=== PATIENT | female | born 1995 | race American Indian/Alaskan Native ===

== ENCOUNTER 2016-10-16 18:04 | Outpatient (CLI) | payer MEDICAID ==
--- NOTE | 2016-10-17 07:51 | Ultrasound Report ---
ULTRASOUND BIOPHYSICAL PROFILE: History: Decreased movement for 2 days Technique: Transabdominal ultrasound with Doppler interrogation. 2 - breathing movements 2 - movements 2 - posture and tone 2 - Qualitative amniotic fluid volume 8 - TOTAL SCORE OF POSSIBLE 8 Heart Rate (bpm) 145
--- NOTE | 2016-10-17 07:52 | Ultrasound Report ---
ULTRASOUND OB LIMITED History: Decreased movement for 2 days Technique: Transabdominal ultrasound with Doppler interrogation. Gestation: Single Position: Cephalic Amniotic Fluid: Normal JOE = 10.4 cm Heart Rate: 140 BPM
== END 2016-10-16 20:19 | disposition home or self-care (01) ==
LOC: TRG 18:04
PROVIDERS: ATTEND Obstetrics & Gynecology
DX: O47.9 False labor, unspecified (principal); Z3A.00 Weeks of gestation of pregnancy not specified
CPT/HCPCS: 59025; 76815; 76819

== ENCOUNTER 2016-10-17 08:28 | Inpatient (IN) | payer MEDICAID ==
--- NOTE | 2016-10-17 09:06 | History and Physical Report ---
History of Present Illness Date of examination: 10/17/16 Date of admission: 10/17/16 08:28 Chief complaint: IOL History of present illness: 21 yo @ 40.3 weeks gestation. care wit [facility] [employer] [facility] since 11.3 weeks complicated by closely space pregnancies, complaints of decreased movement x 2 days. BPP done at [facility] yesterday. 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 denies: smoking, alcohol abuse, prescription drug abuse , IV drug use - Obstetrical History Expected Date of Delivery: 10/14/16 Actual Gestation: 40 Week(s) 3 Day(s) : 3 Para: 2 Hx # Term Pregnancies: 2 Number of Pregnancies: 0 Spontaneous Abortions: 0 Induced : 0 Number of Living Children: 2 Medications and Allergies Allergies Allergy/AdvReac Type Severity Reaction Status Date / Time No Known Allergies Allergy Verified 04/13/15 20:20 Home Medications Medication Instructions Recorded Confirmed Last Taken Type Clotrimazole [Clotrimazole 3 VAG] 1 applicator [facility] #3 cream.appl 08/30/13 Unknown Rx Vit #76/Iron,Carb/FA 1 tab PO DAILY 08/30/13 10/17/16 10/14/16 History [Prenatabs Rx Tablet] Review of Systems All systems: negative - Physical Exam Cardiovascular: Regular rate Lungs: Positive: Normal air movement Vagina: Positive: normal moisture Uterus: Positive: enlarged Extremities: Positive: normal Deep Tendon Reflex Grade: Normal +2 - Obstetrical FHR: category 1 FHR comments: FHR 135 Uterine Contraction Monitor Mode: External Cervical Dilatation: 3 (in office) Cervical Effacement Percentage: 60 station: -3 Uterine Contraction Pattern: Irregular Uterine Tone Measurement Phase: Resting Uterine Contraction Intensity: Mild Results All other labs normal. Assessment and Plan A: IUP @ 40.3 for IOL Category 1 FHR Uncomfortable with contractions GBS Negative P: Admit to L&D for IOL Pitocin augmentation Continuous monitoring IV pain meds/epidural as desired
[2016-10-17] MEDS ORDERED: ZOFRAN IV PRN (10:00)
[2016-10-17] MEDS ORDERED: XYLOCAINE 2% INFILTRATI ONE (10:00)
[2016-10-17] MEDS ORDERED: MINERAL OIL PO PRN (10:00)
[2016-10-17] MEDS ORDERED: LACTATED RINGERS 1,000 ML IV SCH (10:00)
[2016-10-17] MEDS ORDERED: SUBLIMAZE IV PRN (10:00)
[2016-10-17] MEDS ORDERED: PITOCin/NS 30 UNIT/500ML 30 UNITS/500 ML BAG IV SCH (10:00)
[2016-10-17] MEDS ORDERED: STADOL IV PRN (10:00)
[2016-10-17] MEDS ORDERED: PITOCin/NS 20 UNIT/1000ML DRIP 20 UNITS/1,000 ML BAG IV SCH (10:00)
[2016-10-17] MEDS ORDERED: ePHEDrine SULFATE IV PRN (10:00)
[2016-10-17] MEDS ORDERED: BRETHINE IVP PRN (10:00)
[2016-10-17] MEDS ORDERED: BRETHINE SUB-Q PRN (10:00)
[2016-10-17 10:02] LABS: Hematocrit 38.3 % (30.3-42.9); Hemoglobin 12.3 gm/dl (10.1-14.3); Mean Corpuscular HGB Conc 32 % (30-34); Mean Corpuscular Hemoglobin 28 pg (28-32); Mean Corpuscular Volume 88 fl (79-97); Platelet Count 200 K/mm3 (140-440); Red Blood Count 4.38 M/mm3 (3.65-5.03); Red Cell Distribution Width 13.5 % (13.2-15.2); White Blood Count 6.9 K/mm3 (4.5-11.0)
--- NOTE | 2016-10-17 12:07 | Anesthesia Consultation ---
Anesthesia Consult and Med Hx Date of service: 10/17/16 - Airway Anesthetic Teeth Evaluation: Good ROM Head & Neck: Adequate Mental/Hyoid Distance: Adequate Mallampati Class: Class II Intubation Access Assessment: Probably Good - Pre-Operative Health Status ASA Pre-Surgery Classification: ASA2 Proposed Anesthetic Plan: Epidural, Spinal - Pulmonary Hx Asthma: No COPD: No Hx Pneumonia: No - Cardiovascular System Hx Hypertension: No - Central Nervous System Hx Seizures: No Hx Psychiatric Problems: No - Endocrine Hx Renal Disease: No Hx End Stage Renal Disease: No Hx Hypothyroidism: No Hx Hyperthyroidism: No - Hematic Hx Anemia: No Hx Sickle Cell Disease: No - Other Systems Hx Alcohol Use: No
[2016-10-17] MEDS ORDERED: NARCAN 2 MG/2 ML IV PRN (12:08)
[2016-10-17] MEDS: fentaNYL-BUPIV 2 MCG/ML-0.125% 200 MCG/100 ML BAG EPIDURAL SCH (13:21)
--- NOTE | 2016-10-17 13:22 | Progress Note ---
Assessment and Plan A: IUP @ 40.3 for IOL Category 1 FHR Comfortable with epidural AROM 1310 copious amount of clear fluid SVE 6-7/70/-1 Pitocin augmentation GBS Negative P: Continue routine labor management Continue Pitocin augmentation Continuous monitoring Subjective - Subjective Date of service: 10/17/16 Principal diagnosis: Active labor Interval history: 21 yo @ 40.3 weeks gestation. care wit [facility]OR[employer] since 11.3 weeks complicated by closely space pregnancies, complaints of decreased movement x 2 days. BPP done at [facility] yesterday. Objective - Vital Signs Vital Signs: Vital Signs - 12hr 10/17/16 10/17/16 10/17/16 09:13 09:18 09:23 Temperature Pulse Rate 81 82 103 H Pulse Rate [ From Monitor] Respiratory Rate Blood Pressure 118/58 Blood Pressure [Left Arm] O2 Sat by Pulse 98 99 99 Oximetry 10/17/16 10/17/16 10/17/16 09:24 09:28 09:33 Temperature 98.5 F Pulse Rate 83 86 Pulse Rate [ 79 From Monitor] Respiratory 18 Rate Blood Pressure Blood Pressure 118/58 [Left Arm] O2 Sat by Pulse 100 99 97 Oximetry 10/17/16 10/17/16 10/17/16 09:38 09:43 09:48 Temperature Pulse Rate 84 76 81 Pulse Rate [ From Monitor] Respiratory Rate Blood Pressure Blood Pressure [Left Arm] O2 Sat by Pulse 97 98 99 Oximetry 10/17/16 10/17/16 10/17/16 09:53 09:58 10:03 Temperature Pulse Rate 91 H 85 93 H Pulse Rate [ From Monitor] Respiratory Rate Blood Pressure Blood Pressure [Left Arm] O2 Sat by Pulse 99 99 97 Oximetry 10/17/16 10/17/16 10/17/16 10:08 10:13 10:18 Temperature Pulse Rate 89 79 80 Pulse Rate [ From Monitor] Respiratory Rate Blood Pressure Blood Pressure [Left Arm] O2 Sat by Pulse 99 99 98 Oximetry 10/17/16 10/17/16 10/17/16 10:23 10:28 10:33 Temperature Pulse Rate 88 72 92 H Pulse Rate [ From Monitor] Respiratory Rate Blood Pressure Blood Pressure [Left Arm] O2 Sat by Pulse 97 98 98 Oximetry 10/17/16 10/17/16 10/17/16 10:38 10:43 10:54 Temperature Pulse Rate 80 74 69 Pulse Rate [ From Monitor] Respiratory Rate Blood Pressure Blood Pressure [Left Arm] O2 Sat by Pulse 99 98 98 Oximetry 10/17/16 10/17/16 10/17/16 10:55 10:59 11:04 Temperature Pulse Rate 68 73 64 Pulse Rate [ From Monitor] Respiratory Rate Blood Pressure 106/64 Blood Pressure [Left Arm] O2 Sat by Pulse 100 99 Oximetry 10/17/16 10/17/16 10/17/16 11:09 11:14 11:19 Temperature Pulse Rate 63 71 67 Pulse Rate [ From Monitor] Respiratory Rate Blood Pressure Blood Pressure [Left Arm] O2 Sat by Pulse 99 99 99 Oximetry 10/17/16 10/17/16 10/17/16 11:24 11:29 11:34 Temperature Pulse Rate 65 69 70 Pulse Rate [ From Monitor] Respiratory Rate Blood Pressure Blood Pressure [Left Arm] O2 Sat by Pulse 99 100 99 Oximetry 10/17/16 10/17/16 10/17/16 11:39 11:44 11:49 Temperature Pulse Rate 69 80 71 Pulse Rate [ From Monitor] Respiratory Rate Blood Pressure Blood Pressure [Left Arm] O2 Sat by Pulse 98 97 98 Oximetry 10/17/16 10/17/16 10/17/16 11:54 11:59 12:04 Temperature Pulse Rate 80 63 79 Pulse Rate [ From Monitor] Respiratory Rate Blood Pressure Blood Pressure [Left Arm] O2 Sat by Pulse 96 97 98 Oximetry 10/17/16 10/17/16 10/17/16 12:09 12:13 12:14 Temperature Pulse Rate 78 76 84 Pulse Rate [ From Monitor] Respiratory Rate Blood Pressure 107/60 105/53 Blood Pressure [Left Arm] O2 Sat by Pulse 99 98 Oximetry 10/17/16 10/17/16 10/17/16 12:16 12:18 12:19 Temperature Pulse Rate 82 68 68 Pulse Rate [ From Monitor] Respiratory Rate Blood Pressure 88/52 108/51 Blood Pressure [Left Arm] O2 Sat by Pulse 97 Oximetry 10/17/16 10/17/16 10/17/16 12:20 12:22 12:24 Temperature Pulse Rate 64 67 82 Pulse Rate [ From Monitor] Respiratory Rate Blood Pressure 100/45 89/43 Blood Pressure [Left Arm] O2 Sat by Pulse 97 Oximetry 10/17/16 10/17/16 10/17/16 12:25 12:27 12:30 Temperature Pulse Rate 74 59 L 60 Pulse Rate [ From Monitor] Respiratory Rate Blood Pressure 88/39 88/50 97/54 Blood Pressure [Left Arm] O2 Sat by Pulse 98 Oximetry 10/17/16 10/17/16 10/17/16 12:32 12:34 12:35 Temperature Pulse Rate 61 67 79 Pulse Rate [ From Monitor] Respiratory Rate Blood Pressure 98/55 98/57 Blood Pressure [Left Arm] O2 Sat by Pulse 98 Oximetry 10/17/16 10/17/16 10/17/16 12:36 12:38 12:40 Temperature Pulse Rate 60 62 65 Pulse Rate [ From Monitor] Respiratory Rate Blood Pressure 98/56 98/56 Blood Pressure [Left Arm] O2 Sat by Pulse 100 Oximetry 10/17/16 10/17/16 10/17/16 12:41 12:42 12:44 Temperature Pulse Rate 61 61 62 Pulse Rate [ From Monitor] Respiratory Rate Blood Pressure 99/54 96/54 106/56 Blood Pressure [Left Arm] O2 Sat by Pulse Oximetry 10/17/16 10/17/16 10/17/16 12:45 12:46 12:48 Temperature Pulse Rate 57 L 58 L 61 Pulse Rate [ From Monitor] Respiratory Rate Blood Pressure 103/54 99/55 Blood Pressure [Left Arm] O2 Sat by Pulse 100 Oximetry 10/17/16 10/17/16 10/17/16 12:50 12:52 12:54 Temperature Pulse Rate 64 60 57 L Pulse Rate [ From Monitor] Respiratory Rate Blood Pressure 99/56 103/57 96/55 Blood Pressure [Left Arm] O2 Sat by Pulse 100 Oximetry 10/17/16 10/17/16 10/17/16 12:55 12:56 12:58 Temperature Pulse Rate 54 L 54 L 51 L Pulse Rate [ From Monitor] Respiratory Rate Blood Pressure 96/52 102/59 Blood Pressure [Left Arm] O2 Sat by Pulse 100 Oximetry 10/17/16 10/17/16 10/17/16 13:00 13:02 13:04 Temperature Pulse Rate 55 L 56 L 56 L Pulse Rate [ From Monitor] Respiratory Rate Blood Pressure 92/53 112/61 105/57 Blood Pressure [Left Arm] O2 Sat by Pulse 100 Oximetry 10/17/16 10/17/16 10/17/16 13:05 13:06 13:08 Temperature Pulse Rate 63 63 56 L Pulse Rate [ From Monitor] Respiratory Rate Blood Pressure 111/60 112/65 Blood Pressure [Left Arm] O2 Sat by Pulse 100 Oximetry 10/17/16 10/17/16 13:10 13:12 Temperature Pulse Rate 59 L 61 Pulse Rate [ From Monitor] Respiratory Rate Blood Pressure 106/62 120/66 Blood Pressure [Left Arm] O2 Sat by Pulse 100 Oximetry - Exam Cardiovascular: Regular rate Lungs: Normal air movement FHR: category 1 FHR comments: FHR 120s Uterine Contraction Monitor Mode: External Cervical Dilatation: 6.5 (AROM copious amount of clear fluid) Cervical Effacement Percentage: 70 station: -2 Uterine Contraction Frequency (min): 1.5-4 Uterine Contraction Pattern: Regular Uterine Tone Measurement Phase: Resting - Labs Labs: Laboratory Results - last 24 hr 10/17/16 10/17/16 09:00 09:00 WBC 6.9 RBC 4.38 Hgb 12.3 Hct 38.3 MCV 88 MCH 28 MCHC 32 RDW 13.5 Plt Count 200 Blood Type O POSITIVE Antibody Screen Negative
--- NOTE | 2016-10-17 15:28 | Procedure Note ---
OB Delivery Note - Delivery Date of Delivery: 10/17/16 (1459) Surgeon: SAÚL GARCIAS Estimated blood loss: 100cc - Vaginal Delivery position: OA Intrapartum events: none Delivery induction: none Delivery augmentation: rupture of membranes, pitocin Delivery monitor: external FHT, external uterine Route of delivery: Delivery placenta: spontaneous Delivery cord: nuchal cord, 3 umbilical vessels Delivery laceration: none Anesthesia: epidural Delivery comments: Melvi Joy was delivered on 10/17/16 @ 1459 over intact perineum. responded well to drying and stimulation and was placed directly on maternal chest and abdomen. Placenta delivered thompson side presenting @ 1508. Cord was clamped and cut by FOB at 12 minutes of life. Fundus firm and midline at 3cm below umbilicus. Mother and baby doing well. Weight 7lb 12 oz. - A at 1 minute: 8 at 5 minutes: 9 Gender: Male
[2016-10-17] MEDS ORDERED: TYLENOL PO PRN (17:32)
[2016-10-17] MEDS ORDERED: ANUCORT-HC PR PRN (17:32)
[2016-10-17] MEDS ORDERED: DULCOLAX PR PRN (17:32)
[2016-10-17] MEDS ORDERED: BENADRYL PO PRN (17:32)
[2016-10-17] MEDS ORDERED: DERMOPLAST TP PRN (17:32)
[2016-10-17] MEDS ORDERED: LANSINOH TP PRN ×2 (17:32)
[2016-10-17] MEDS ORDERED: MILK OF MAGNESIA PO PRN (17:32)
[2016-10-17] MEDS ORDERED: TUCKS PAD TP PRN (17:32)
[2016-10-17] MEDS: MOTRIN PO SCH ×2 (17:40→23:17)
[2016-10-17] MEDS ORDERED: SODIUM CHLORIDE FLUSH SYRINGE 10 ML IV SCH (18:00)
[2016-10-17] MEDS: NORCO 5/325 PO PRN (20:08)
[2016-10-18] MEDS: NORCO 5/325 PO PRN ×4 (02:18→23:58)
[2016-10-18] MEDS: COLACE PO SCH ×3 (05:15→23:58)
[2016-10-18 05:57] LABS: Hematocrit 32.2 % (30.3-42.9); Hemoglobin 10.5 gm/dl (10.1-14.3)
[2016-10-18] MEDS ORDERED: BOOSTRIX IM ONE (06:31)
[2016-10-18] MEDS: MOTRIN PO SCH (07:27)
[2016-10-18] MEDS: SENOKOT S PO SCH ×2 (07:28→23:58)
[2016-10-18] MEDS ORDERED: PRENATAL VITAMIN PO SCH (10:00)
--- NOTE | 2016-10-18 10:17 | Progress Note ---
Assessment and Plan A: PP Day #1 Stable P: Follow Routine Orders Desires Nexplanon for PP Contraception D/C home today per patient request RTO in 6 weeks Subjective - Subjective Date of service: 10/18/16 Principal diagnosis: Active labor Patient reports: appetite normal, voiding normally, pain well controlled, flatus , ambulating normally : doing well, bottle feeding Objective - Vital Signs Latest vital signs: Vital Signs Temp Pulse Pulse Resp BP BP Pulse Ox 10/18/16 08:00 97.9 F 60 18 114/64 10/18/16 00:00 98.6 F 72 18 119/76 10/17/16 20:20 98.2 F 70 18 114/60 10/17/16 16:55 98.3 F 75 18 138/78 10/17/16 16:24 65 127/67 10/17/16 16:16 71 131/60 10/17/16 16:01 62 113/67 10/17/16 15:46 79 100/74 10/17/16 15:31 70 99/64 10/17/16 15:25 73 100 10/17/16 15:20 75 100 10/17/16 15:16 81 108/61 10/17/16 15:15 73 100 10/17/16 15:10 73 99 10/17/16 15:05 81 100 10/17/16 15:00 67 100 10/17/16 14:56 71 131/60 10/17/16 14:55 90 100 10/17/16 14:50 59 L 100 10/17/16 14:45 61 98 10/17/16 14:40 56 L 99 10/17/16 14:35 60 98 10/17/16 14:30 54 L 99 10/17/16 14:25 67 99 10/17/16 14:20 70 100 10/17/16 14:15 72 100 10/17/16 14:11 71 102/68 10/17/16 14:10 62 99 10/17/16 14:05 63 100 10/17/16 14:00 60 100 10/17/16 13:55 60 99 10/17/16 13:50 58 L 99 10/17/16 13:45 63 100 10/17/16 13:40 63 96 10/17/16 13:35 63 97 10/17/16 13:30 57 L 99 10/17/16 13:25 58 L 98 10/17/16 13:24 60 111/59 10/17/16 13:22 63 104/58 10/17/16 13:20 62 104/56 100 10/17/16 13:19 59 L 118/56 10/17/16 13:16 58 L 101/51 10/17/16 13:15 60 100 10/17/16 13:12 61 120/66 10/17/16 13:10 59 L 106/62 100 10/17/16 13:08 56 L 112/65 10/17/16 13:06 63 111/60 10/17/16 13:05 63 100 10/17/16 13:04 56 L 105/57 10/17/16 13:02 56 L 112/61 10/17/16 13:00 55 L 92/53 100 10/17/16 12:58 51 L 102/59 10/17/16 12:56 54 L 96/52 10/17/16 12:55 54 L 100 10/17/16 12:54 57 L 96/55 10/17/16 12:52 60 103/57 10/17/16 12:50 64 99/56 100 10/17/16 12:48 61 99/55 10/17/16 12:46 58 L 103/54 10/17/16 12:45 57 L 100 10/17/16 12:44 62 106/56 10/17/16 12:42 61 96/54 10/17/16 12:41 61 99/54 10/17/16 12:40 65 100 10/17/16 12:38 62 98/56 10/17/16 12:36 60 98/56 10/17/16 12:35 79 98 10/17/16 12:34 67 98/57 10/17/16 12:32 61 98/55 10/17/16 12:30 60 97/54 98 10/17/16 12:27 59 L 88/50 10/17/16 12:25 74 88/39 10/17/16 12:24 82 97 10/17/16 12:22 67 89/43 10/17/16 12:20 64 100/45 10/17/16 12:19 68 97 10/17/16 12:18 68 108/51 10/17/16 12:16 82 88/52 10/17/16 12:14 84 105/53 98 10/17/16 12:13 76 107/60 10/17/16 12:09 78 99 10/17/16 12:04 79 98 10/17/16 11:59 63 97 10/17/16 11:54 80 96 10/17/16 11:49 71 98 10/17/16 11:44 80 97 10/17/16 11:39 69 98 10/17/16 11:34 70 99 10/17/16 11:29 69 100 10/17/16 11:24 65 99 10/17/16 11:19 67 99 10/17/16 11:14 71 99 10/17/16 11:09 63 99 10/17/16 11:04 64 99 10/17/16 10:59 73 100 10/17/16 10:55 68 106/64 10/17/16 10:54 69 98 10/17/16 10:43 74 98 10/17/16 10:38 80 99 10/17/16 10:33 92 H 98 10/17/16 10:28 72 98 10/17/16 10:23 88 97 10/17/16 10:18 80 98 Intake and Output 10/17/16 10/18/16 10/18/16 22:59 06:59 14:59 Intake Total 720 Output Total 800 1400 Balance -80 -1400 Intake: Oral 360 Intake, Free Water 360 Output: Urine 800 1400 Void 800 1400 Other: Total, Intake Amount 240 Total, Output Amount 800 600 Voiding Method Toilet Estimated Blood Loss 100 - Exam Breasts: Present: normal Cardiovascular: Present: Regular rate Lungs: Present: Clear to auscultation, Normal air movement Abdomen: Present: normal appearance, soft, normal bowel sounds Uterus: Present: normal, firm, fundal height below umbilicus Extremities: Present: normal
--- NOTE | 2016-10-18 10:18 | Discharge Summary ---
Providers - Providers Date of Admission: 10/17/16 08:28 Date of discharge: 10/18/16 Attending physician: UMER HUBBARD MD Primary care physician: UMER HUBBARD MD Hospitalization Reason for admission: active labor Delivery: Episiotomy: none Laceration: none Other procedures: none complications: none Discharge diagnosis: IUP at term delivered [place] baby: male Condition at discharge: Good Disposition: DISCHARGED TO HOME OR SELFCARE Plan - Provider Discharge Summary Activity: routine, no sex for 6 weeks, no heavy lifting 4 weeks, no strenuous exercise Diet: routine Instructions: routine Additional instructions: [] Smoking cessation referral if applicable(refer to patient education folder for contact #) [] Refer to [facility] Booklet Call your doctor immediately for: * Fever > 100.5 * Heavy vaginal bleeding ( >1 pad per hour) * Severe persistent headache * Shortness of breath * Reddened, hot, painful area to leg or breast * Drainage or odor from incision. * Keep incision clean and dry at all times and follow doctor's instructions regarding bathing/showering - Follow up plan Follow up: JESE LINDSAY CNM [Advanced Practice Nurse] - 6 Weeks
--- NOTE | 2016-10-18 14:10 | Progress Note ---
Subjective Date of service: 10/18/16 Principal diagnosis: Active labor Interval history: 1st POD after normal vaginal delivery Patient is in the bed, comfortable. Pain is well controlled with pain meds. Ambulated well. No residual neurological deficit. No anesthesia complications Objective - Constitutional Vitals: Vital Signs - 12hr 10/18/16 08:00 Temperature 97.9 F Pulse Rate [ 60 From Monitor] Respiratory 18 Rate Blood Pressure 114/64 [Left Arm] - Labs CBC & Chem 7: 10/18/16 05:39
[2016-10-19] MEDS: NORCO 5/325 PO PRN (05:58)
[2016-10-19] MEDS: MOTRIN PO SCH (12:40)
[2016-10-19 15:19] VITALS: BP 108/74
[2016-10-19] MEDS: fentaNYL-BUPIV 2 MCG/ML-0.125% 200 MCG/100 ML BAG EPIDURAL SCH (16:22)
== END 2016-10-19 15:38 | disposition home or self-care (01) | DRG 775 ==
LOC: LD 08:28 → OB 16:49
PROVIDERS: ADMIT Obstetrics & Gynecology; ATTEND Obstetrics & Gynecology
PROC: 10E0XZZ Delivery of Products of Conception, External Approach (ICD-10-PCS; principal; 2016-10-17)
PROC: 10907ZC Drainage of Amniotic Fluid, Therapeutic from Products of Conception, Via Natural or Artificial Opening (ICD-10-PCS; 2016-10-17)
PROC: 00HU33Z Insertion of Infusion Device into Spinal Canal, Percutaneous Approach (ICD-10-PCS; 2016-10-17)
PROC: 3E0R3CZ (ICD-10-PCS; 2016-10-17)
DX: O69.81X0 Labor and delivery complicated by cord around neck, without compression, not applicable or unspecified (principal); Z3A.40 40 weeks gestation of pregnancy; Z37.0 Single live birth
CPT/HCPCS: 36415; 85014; 85018; 85027; 86850; 86900; 86901; J0595; J2590; J7120